=== PATIENT | male | born 1970 | race Caucasian/White ===

== ENCOUNTER 2021-11-17 14:27 | Emergency (ER) | payer BC ==
[~2021-11-17] VITALS: Ht 185.4 cm; Wt 99.8 kg
[2021-11-17 17:01] LABS: HEMOGLOBIN 14.7 gm/dl (14.0-17.5); RED BLOOD COUNT 4.95 M/UL (4.20-5.50); WHITE BLOOD COUNT 4.1 K/UL (4.5-11.0)
[2021-11-17 17:28] LABS: BUN/CREATININE RATIO 14 (0-10)
== END 2021-11-17 18:30 | disposition home or self-care (01) ==
LOC: ER1 14:27
PROVIDERS: Emergency Medicine
DX: U07.1 COVID-19 (principal); Z23 Encounter for immunization; E86.0 Dehydration
CPT/HCPCS: 71045; 80048; 82550; 82553; 83874; 84484; 85025; 85379; 93005; 99284; M0245; Q9967